=== PATIENT | male | born 1935 | race Caucasian/White ===

== ENCOUNTER 2017-03-30 08:02 | Emergency (ER) | payer MEDICARE, MEDICAID ==
[~2017-03-30 08:02] MED LIST: ADVIL200 MG PO; CALCIUM PO; CHLORTHALIDONE25 MG PO; COLACE100 M1 PO; DEBROX 6.5% EARBOTH; FLOVENT HFA 11012 GM INH; MAG-AL PLUS XS30 ML PO; MAGNESIUM OXID400 MG PO; NAMENDA10 MG PO; NITROSTAT0.4 MG SL; NORVASC10 MG PO; PRAVACHOL80 MG PO; PRILOSEC20 MG PO; PRINIVIL20 MG PO; RESTORIL15 MG PO; THERA M PLUS T1 EACH PO; TYLENOL325 M1 PO; ULTRAM50 MG PO; VITAMIN C500 M1 PO; XANAX0.25 MG PO; XARELTO10 MG PO; ZOLOFT100 MG PO
== END 2017-03-30 09:35 | disposition short-term general hospital (02) ==
LOC: ER 08:02
DX: K21.9 Gastro-esophageal reflux disease without esophagitis (principal); I10 Essential (primary) hypertension; I48.91 Unspecified atrial fibrillation; I25.10 Atherosclerotic heart disease of native coronary artery without angina pectoris; F03.90 Unspecified dementia, unspecified severity, without behavioral disturbance, psychotic disturbance, mood disturbance, and anxiety; Z95.1 Presence of aortocoronary bypass graft; Z98.890 Other specified postprocedural states; Z79.899 Other long term (current) drug therapy